=== PATIENT | female | born 1975 | race Two or more races ===

== ENCOUNTER → 2019-03-23 | Outpatient (CLI) | payer OTHER ==
[2019-03-24 00:10] LABS: ESTRADIOL LEVEL 52.1 pg/mL (.); FSH 14.6 mIU/mL (.); LUTEINIZING HORMONE 9.1 mIU/mL (.)
== END | disposition home or self-care (01) ==
LOC: LAB 14:13
PROVIDERS: ATTEND Nurse Practitioner Women's Health
DX: N92.6 Irregular menstruation, unspecified (principal)
CPT/HCPCS: 36415; 82670; 83001; 83002; 84443; 84702